=== PATIENT | male | born 1965 | race American Indian/Alaskan Native ===

== ENCOUNTER 2018-01-02 07:45 | Outpatient (CLI) | payer OTHER ==
--- NOTE | 2018-01-02 08:56 | XRay Report ---
XRAY RIGHT HAND THREE VIEWS: 01/02/18 07:45:00 CLINICAL: Right hand pain. FINDINGS: No fracture or dislocation. Mild arthritis at the first and second MCP joints with no osteophytes and no minimal arthritis of IP joints. The carpal bones are intact. The distal radius and home are normal. The radiocarpal joint is normal. Soft tissue swelling of the thumb, index finger and middle finger. No soft tissue air or foreign body. No erosions. 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 Nonspecific soft tissue swelling which is likely related to the arthritis.
== END 2018-01-02 07:46 | disposition home or self-care (01) ==
LOC: SPVIMAG 07:45
PROVIDERS: ATTEND Orthopaedic Surgery Sports Medicine
DX: M18.11 Unilateral primary osteoarthritis of first carpometacarpal joint, right hand (principal); M19.041 Primary osteoarthritis, right hand